=== PATIENT | male | born 1990 | race Caucasian/White ===

== ENCOUNTER 2016-09-18 18:10 | Emergency (ER) | payer MEDICAID ==
--- NOTE | 2016-09-18 18:41 | Emergency Department Record ---
History of Present Illness - General Chief Complaint: Shortness of breath Stated Complaint: SHORT OF BREATH Time Seen by Provider: 09/18/16 18:31 Source: Patient Mode of Arrival: Ambulatory Limitations: No limitations - History of Present Illness Initial Comments: The patient is here due to 2 episodes of SOB today. The first occurred at noon today and lasted about 45 minutes and the 2nd occurred at 5:30 while at work and again lasted about 45 minutes. Both episodes occurred while at rest and were associated with very mild L chest heaviness. He denied any nausea or sweating with the SOB. The patient had similar episodes to this about 4 months ago and did see his PCP and have PFT's done that were normal. He has no hx of CP with exertion and has no cardiac risk factors. MD Complaint: Shortness of breath Onset/Timin -: Hour(s) Consistency: Intermittent Associated Symptoms: Chest pain Treatments Prior to Arrival: Bronchodilator Treatment Prior to Arrival Comment:: used mothers inhaler this afternoon - Related Data Home Oxygen Therapy: No Allergies Allergy/AdvReac Type Severity Reaction Status Date / Time No Known Allergies Allergy Unverified 07/01/16 09:38 Travel Screening - Travel/Exposure Within Last 30 Days Have you traveled within the last 30 days?: No - Travel/Exposure Within Last Year Have you traveled outside the [place] in the last year?: No - Additonal Travel Details Have you been exposed to anyone with a communicable illness?: No - Travel Symptoms Symptom Screening: None Review of Systems Constitutional: Denies: Chills, Fever Eyes: Denies: Eye discharge ENT: Denies: Congestion Respiratory: Denies: Cough, Dyspnea Cardiovascular: Denies: Arrhythmia, Chest pain, Dyspnea on exertion, Palpitations, Syncope Past Medical History - SOCIAL HISTORY Smoking Status: Never smoker Alcohol Use: Rare Drug Use: None - RESPIRATORY Hx Respiratory Disorders: No - CARDIOVASCULAR Hx Cardio Disorders: No Comment:: heart murmur as a child - NEURO Hx Neuro Disorders: No - GI Hx GI Disorders: No - Hx Genitourinary Disorders: No - ENDOCRINE Hx Endocrine Disorders: No - MUSCULOSKELETAL Hx Musculoskeletal Disorders: No - PSYCH Hx Psych Problems: No - HEMATOLOGY/ONCOLOGY Hx Hematology/Oncology Disorders: No Family Medical History Any Significant Family History?: Yes Hx Cancer: Grandparents Hx Heart Disease: Grandparents Hx Resp Disorders: Mother Physical Exam - General General Appearance: Alert, Oriented x3, Cooperative, No acute distress - Head Head exam: Atraumatic, Normocephalic, Normal inspection - Eye Eye exam: Normal appearance, PERRL - ENT Throat exam: Normal inspection. negative: Tonsillar erythema, Tonsillar exudate - Neck Neck exam: Normal inspection, Full ROM. negative: Tenderness - Respiratory Respiratory exam: Normal lung sounds bilaterally. negative: Respiratory distress - Cardiovascular Cardiovascular Exam: Regular rate, Normal rhythm, Normal heart sounds. negative : Diastolic murmur, Systolic murmur - GI/Abdominal GI/Abdominal exam: Soft, Normal bowel sounds. negative: Tenderness - Extremities Extremities exam: Normal inspection, Full ROM, Normal capillary refill. negative: Calf tenderness, Pedal edema, Tenderness - Neurological Neurological exam: Alert, Normal gait. negative: Abnormal gait, Motor sensory deficit Course Vital Signs 09/18/16 18:21 Temperature 98.7 F Pulse Rate 60 Respiratory 20 Rate Blood Pressure 128/80 Pulse Ox 95 - Reevaluation(s) Reevaluation #1: The patient's care was turned over to Dr. Simon at 19:00 due to shift change. 09/18/16 18:59 Medical Decision Making - Lab Data Result diagrams: 09/18/16 18:40 09/18/16 18:40 Disposition Forms: Patient Portal Access Quality - Quality Measures Quality Measures: N/A - Blood Pressure Screening View Details: Yes Blood Pressure Classification: Pre-Hypertensive BP Reading Systolic Measurement: 128 Diastolic Measurement: 80 Screening for High Blood Pressure: < Pre-Hypertensive BP, F/U Documented > [ G8950] Pre-Hypertensive Follow-up Interventions: Follow-up with rescreen every year.
[2016-09-18 19:04] LABS: BASO % 0.3 % (0-6); GRAN % 64.4 % (47-80); HEMATOCRIT 44.3 % (42.0-52.0); HEMOGLOBIN 15.2 gm/dl (14.0-18.0); LYMPH % 23.9 % (16-45); MEAN CELL VOLUME 83.6 fl (81-97); MEAN CORPUSCULAR HEMOGLOBIN 28.7 pg (27-33); MEAN CORPUSCULAR HGB CONC 34.3 g/dl (32-36); MEAN PLATELET VOLUME 10.5 fl (7.4-10.4); MONO % 6.4 % (0-9); PLATELET COUNT 311 K/uL (130-400); RED CELL DISTRIBUTION WIDTH 13.1 % (11.5-14.5); WHITE BLOOD COUNT W/O DIFF 9.8 K/uL (4.2-12.2)
[2016-09-18 19:15] LABS: ANION GAP 11.9 (7-16); BLOOD UREA NITROGEN 12 mg/dL (9-20); CARBON DIOXIDE 27.1 mmol/L (22-30); CREATINE PHOSPHOKINASE 236 U/L (55-170); CREATININE 0.8 mg/dL (0.66-1.25); EST GLOMERULAR FILTRATION RATE > 60 ml/min; GLUCOSE,RANDOM 94 mg/dL (70-110)
[2016-09-18 19:27] LABS: CKMB 3.3 ug/L (0-6); TROPONIN I < 0.012 ng/mL (0.00-0.034)
--- NOTE | 2016-09-18 20:26 | Emergency Department Record ---
History of Present Illness - General Chief Complaint: Shortness of breath Stated Complaint: SHORT OF BREATH Time Seen by Provider: 09/18/16 18:31 Source: Patient Mode of Arrival: Ambulatory Limitations: No limitations - History of Present Illness Onset/Timin -: Hour(s) Consistency: Intermittent Associated Symptoms: Chest pain Treatments Prior to Arrival: Bronchodilator Treatment Prior to Arrival Comment:: used mothers inhaler this afternoon - Related Data Home Oxygen Therapy: No Allergies Allergy/AdvReac Type Severity Reaction Status Date / Time No Known Allergies Allergy Unverified 07/01/16 09:38 Travel Screening - Travel/Exposure Within Last 30 Days Have you traveled within the last 30 days?: No - Travel/Exposure Within Last Year Have you traveled outside the [place] in the last year?: No - Additonal Travel Details Have you been exposed to anyone with a communicable illness?: No - Travel Symptoms Symptom Screening: None Review of Systems Constitutional: Denies: Chills, Fever Eyes: Denies: Eye discharge ENT: Denies: Congestion Respiratory: Denies: Cough, Dyspnea Cardiovascular: Denies: Arrhythmia, Chest pain, Dyspnea on exertion, Palpitations, Syncope Past Medical History - SOCIAL HISTORY Smoking Status: Never smoker Alcohol Use: Rare Drug Use: None - RESPIRATORY Hx Respiratory Disorders: No - CARDIOVASCULAR Hx Cardio Disorders: No Comment:: heart murmur as a child - NEURO Hx Neuro Disorders: No - GI Hx GI Disorders: No - Hx Genitourinary Disorders: No - ENDOCRINE Hx Endocrine Disorders: No - MUSCULOSKELETAL Hx Musculoskeletal Disorders: No - PSYCH Hx Psych Problems: No - HEMATOLOGY/ONCOLOGY Hx Hematology/Oncology Disorders: No Family Medical History Any Significant Family History?: Yes Hx Cancer: Grandparents Hx Heart Disease: Grandparents Hx Resp Disorders: Mother Physical Exam - General Limitations: No limitations Course Vital Signs 09/18/16 18:21 Temperature 98.7 F Pulse Rate 60 Respiratory 20 Rate Blood Pressure 128/80 Pulse Ox 95 - Reevaluation(s) Reevaluation #1: 09/18/16 20:23 pt doing well. no symptoms Medical Decision Making - Lab Data Result diagrams: 09/18/16 18:50 09/18/16 18:50 Lab Results 09/18/16 09/18/16 09/18/16 Range/Units 18:50 18:50 18:50 WBC 9.8 (4.2-12.2) K/uL RBC 5.30 (4.40-5.70) M/uL Hgb 15.2 (14.0-18.0) gm/dl Hct 44.3 (42.0-52.0) % MCV 83.6 (81-97) fl MCH 28.7 (27-33) pg MCHC 34.3 (32-36) g/dl RDW 13.1 (11.5-14.5) % Plt Count 311 (130-400) K/uL MPV 10.5 H (7.4-10.4) fl Gran % 64.4 (47-80) % Lymphocytes % 23.9 (16-45) % Monocytes % 6.4 (0-9) % Eosinophils % 5.0 (0-6) % Basophils % 0.3 (0-6) % D-Dimer 0.23 (0-0.59) mg/L FEU Sodium 144 (136-145) mmol/L Potassium 4.1 (3.5-5.1) mmol/L Chloride 105 (98-107) mmol/L Carbon Dioxide 27.1 (22-30) mmol/L Anion Gap 11.9 (7-16) BUN 12 (9-20) mg/dL Creatinine 0.8 (0.66-1.25) mg/dL Estimated GFR > 60 ml/min Random Glucose 94 (70-110) mg/dL Calcium 9.5 (8.5-10.1) mg/dL Creatine Kinase 236 H (55-170) U/L CK-MB (CK-2) 3.3 (0-6) ug/L Troponin I < 0.012 (0.00-0.034) ng/mL NT-Pro-B Natriuret Pep (<125) pg/mL 09/18/16 Range/Units 18:50 WBC (4.2-12.2) K/uL RBC (4.40-5.70) M/uL Hgb (14.0-18.0) gm/dl Hct (42.0-52.0) % MCV (81-97) fl MCH (27-33) pg MCHC (32-36) g/dl RDW (11.5-14.5) % Plt Count (130-400) K/uL MPV (7.4-10.4) fl Gran % (47-80) % Lymphocytes % (16-45) % Monocytes % (0-9) % Eosinophils % (0-6) % Basophils % (0-6) % D-Dimer (0-0.59) mg/L FEU Sodium (136-145) mmol/L Potassium (3.5-5.1) mmol/L Chloride (98-107) mmol/L Carbon Dioxide (22-30) mmol/L Anion Gap (7-16) BUN (9-20) mg/dL Creatinine (0.66-1.25) mg/dL Estimated GFR ml/min Random Glucose (70-110) mg/dL Calcium (8.5-10.1) mg/dL Creatine Kinase (55-170) U/L CK-MB (CK-2) (0-6) ug/L Troponin I (0.00-0.034) ng/mL NT-Pro-B Natriuret Pep 46.30 (<125) pg/mL Disposition Disposition: Discharge Clinical Impression: SOB (shortness of breath) Disposition: Home, Self-Care Condition: (1) Good Instructions: Dyspnea (ED) Additional Instructions: follow up with family doctor and with corporate learning consultant to have further work up. return sooner if worse. Forms: Patient Portal Access Quality - Quality Measures Quality Measures: N/A - Blood Pressure Screening Blood Pressure Classification: Pre-Hypertensive BP Reading Systolic Measurement: 128 Diastolic Measurement: 80 Screening for High Blood Pressure: < Normal BP, F/U Not Required > [G8783] Normal BP Follow-up Interventions: No follow-up required
--- NOTE | 2016-09-19 09:00 | RADIOLOGY REPORT ---
EXAM: CHEST, TWO VIEWS HISTORY: DIFFICULTY IN BREATHING AND CHEST TIGHTNESS. TECHNIQUE: PA and lateral views of the chest were obtained. Comparison: None. FINDINGS: The heart size is normal. Mild linear fibrosis or discoid atelectasis right middle lobe. No acute alveolar infiltrate is seen. No pleural effusion or pneumothorax evident. IMPRESSION: MINOR LINEAR FIBROSIS OR DISCOID ATELECTASIS RIGHT MIDDLE LOBE. CHEST APPEARS OTHERWISE NEGATIVE. JOB NUMBER: [id number] MTDD
== END 2016-09-18 20:33 | disposition home or self-care (01) ==
LOC: ER 18:10
DX: R06.02 Shortness of breath (principal); R07.89 Other chest pain
CPT/HCPCS: 71020; 80048; 82550; 82553; 83880; 84484; 85025; 85379; 93005; 93010; 99284

== ENCOUNTER 2016-10-31 12:18 | Emergency (ER) | payer MEDICAID ==
--- NOTE | 2016-10-31 12:48 | Emergency Department Record ---
History of Present Illness - General Chief Complaint: Chest Pain Stated Complaint: CHEST PAIN Time Seen by Provider: 10/31/16 12:29 Source: Patient Mode of Arrival: Ambulatory Limitations: No limitations - History of Present Illness Initial Comments: The patient is here due to having 2 episodes of SOB today. The first occurred at 4am which woke him up. The 2nd occurred at work at 11:30am. The onset is with SOB and the patient feels like he cannot take a deep breath. He does have mild retrosternal chest tightness with it and the episodes lasted about 45 minutes before resolving on there own. The patient denies any sweating, nausea, or lightheadedness. The patient has had no episodes today with exertion or while walking. The patient has been having these exact same episodes for about a year and has seen his PCP about it and also was in the ER on 09/18/16 where he had a neg workup including labs, EKG, D-dimer, and CXR. The patient has had PFT' s for this and was told he did not have asthma. He presently has no cardiac risk factors and does not smoke. He also states he always gets these episodes while at rest and never with exertion. Presently he feels completely back to normal with no problems or issues. Onset/Timin -: Hour(s) Onset: Awoke with symptoms Pain Location: Substernal Pain Radiation: None Severity: Moderate Severity scale (1-10): 8 Quality: Tightness Consistency: Intermittent Improves With: Rest Anginal Symptoms: Diaphoresis Treatments Prior to Arrival: None - Related Data Home Medications Medication Instructions Recorded Confirmed Last Taken Cetirizine HCl [Zyrtec] 10 mg PO DAILY 10/31/16 10/31/16 10/31/16 Allergies Allergy/AdvReac Type Severity Reaction Status Date / Time No Known Allergies Allergy none Unverified 10/31/16 12:51 Travel Screening - Travel/Exposure Within Last 30 Days Have you traveled within the last 30 days?: No - Travel/Exposure Within Last Year Have you traveled outside the [place] in the last year?: No - Additonal Travel Details Have you been exposed to anyone with a communicable illness?: No - Travel Symptoms Symptom Screening: None Review of Systems Constitutional: Denies: Chills, Fever Eyes: Denies: Eye discharge ENT: Denies: Congestion Respiratory: Denies: Cough Cardiovascular: Denies: Arrhythmia Endocrine: Denies: Fatigue Gastrointestinal: Denies: Nausea Genitourinary: Denies: Dysuria Musculoskeletal: Denies: Arthralgia Past Medical History - SOCIAL HISTORY Smoking Status: Never smoker Alcohol Use: Rare Drug Use: None - RESPIRATORY Hx Respiratory Disorders: No - CARDIOVASCULAR Hx Cardio Disorders: No Comment:: heart murmur as a child - NEURO Hx Neuro Disorders: No - GI Hx GI Disorders: No - Hx Genitourinary Disorders: No - ENDOCRINE Hx Endocrine Disorders: No - MUSCULOSKELETAL Hx Musculoskeletal Disorders: No - PSYCH Hx Psych Problems: No - HEMATOLOGY/ONCOLOGY Hx Hematology/Oncology Disorders: No Family Medical History Any Significant Family History?: No Hx Cancer: Grandparents Hx Heart Disease: Grandparents Hx Resp Disorders: Mother Physical Exam - General General Appearance: Alert, Oriented x3, Cooperative, No acute distress - Head Head exam: Atraumatic, Normocephalic, Normal inspection - Eye Eye exam: Normal appearance, PERRL - ENT Throat exam: Normal inspection. negative: Tonsillar erythema, Tonsillar exudate - Neck Neck exam: Normal inspection, Full ROM. negative: Tenderness - Respiratory Respiratory exam: Normal lung sounds bilaterally. negative: Decreased breath sounds, Respiratory distress, Wheezes - Cardiovascular Cardiovascular Exam: Regular rate, Normal rhythm, Normal heart sounds. negative : Diastolic murmur, Irregular rhythm, Systolic murmur - GI/Abdominal GI/Abdominal exam: Soft, Normal bowel sounds. negative: Tenderness - Extremities Extremities exam: Normal inspection, Full ROM, Normal capillary refill. negative: Tenderness - Neurological Neurological exam: Alert, Normal gait. negative: Abnormal gait, Motor sensory deficit Course Vital Signs 10/31/16 12:20 Temperature 97.8 F Pulse Rate 75 Respiratory 18 Rate Blood Pressure 130/79 Pulse Ox 97 - Reevaluation(s) Reevaluation #1: The patient is doing very well at this time. He has had no further episodes in the ED. I did explain to him that his test results are all normal. I do not feel like the patient has any acute cardiac issue due to the fact he is young and healthy with no cardiac risk factors and the SOB and discomfort are never exertional. He will be referred to cardiology for further evaluation because the patient is very anxious about his heart. 10/31/16 13:39 Reevaluation #2: I also do not believe the patient could have a PE or any lung issue due to the fact he is low prob by Wells Criteria and is PERC Neg. He also had a neg D- dimer the last visit here in the ER less than 2 months ago for the exact same thing. 10/31/16 13:41 Medical Decision Making - Data Complexity MDM Data: Labs Ordered and/or Reviewed, EKG Ordered and/or Reviewed - Lab Data Result diagrams: 10/31/16 12:55 10/31/16 12:55 - EKG Data -: EKG Interpreted by Me EKG: No Acute Changes, Normal EKG, Unchanged From Previous Disposition Disposition: Discharge Clinical Impression: SOB (shortness of breath) Disposition: Home, Self-Care Condition: (1) Good Instructions: Dyspnea (ED) Additional Instructions: Please see your PCP next week as planned and also F/U in the Specialty clinic as planned with Dr. Jovel. Referrals: [facility] [Provider Group] Forms: Patient Portal Access Time of Disposition: 13:43 Quality - Quality Measures Quality Measures: N/A - Blood Pressure Screening View Details: Yes Does Patient Have Any of the Following: No Blood Pressure Classification: Pre-Hypertensive BP Reading Systolic Measurement: 121 Diastolic Measurement: 79 Screening for High Blood Pressure: < Pre-Hypertensive BP, F/U Documented > [ G8950] Pre-Hypertensive Follow-up Interventions: Referral to alternative/primary care provider.
[2016-10-31 13:08] LABS: BASO % 0.3 % (0-6); EOS % 6.8 % (0-6); GRAN % 61.9 % (47-80); HEMATOCRIT 46.1 % (42.0-52.0); HEMOGLOBIN 15.7 gm/dl (14.0-18.0); LYMPH % 25.1 % (16-45); MEAN CELL VOLUME 82.6 fl (81-97); MEAN CORPUSCULAR HEMOGLOBIN 28.1 pg (27-33); MEAN CORPUSCULAR HGB CONC 34.1 g/dl (32-36); MEAN PLATELET VOLUME 10.6 fl (7.4-10.4); MONO % 5.9 % (0-9); PLATELET COUNT 338 K/uL (130-400); RED BLOOD COUNT 5.58 M/uL (4.40-5.70)
[2016-10-31 13:18] LABS: ALB/GLOB RATIO 1.3 (1.1-1.8); ALBUMIN 5.2 gm/dL (3.5-5.0); ALKALINE PHOSPHATASE 59 U/L (38-126); ALT/SGPT 67 U/L (21-72); ANION GAP 12.9 (7-16); AST/SGOT 33 U/L (17-59); BILIRUBIN,TOTAL 0.86 mg/dL (0.2-1.3); BLOOD UREA NITROGEN 13 mg/dL (9-20); CARBON DIOXIDE 25.1 mmol/L (22-30); CREATINE PHOSPHOKINASE 259 U/L (55-170); CREATININE 0.9 mg/dL (0.66-1.25); EST GLOMERULAR FILTRATION RATE > 60 ml/min; GLUCOSE,RANDOM 102 mg/dL (70-110); TOTAL PROTEIN 9.3 gm/dL (6.3-8.2)
[2016-10-31 13:29] LABS: CKMB 3.8 ug/L (0-6)
[2016-10-31 13:31] LABS: TROPONIN I < 0.012 ng/mL (0.00-0.034)
== END 2016-10-31 13:52 | disposition home or self-care (01) ==
LOC: ER 12:18
DX: R06.02 Shortness of breath (principal); R07.89 Other chest pain
CPT/HCPCS: 80053; 82550; 82553; 84484; 85025; 93005; 93010; 99284

== ENCOUNTER 2016-11-14 23:11 | Emergency (ER) | payer MEDICAID ==
--- NOTE | 2016-11-14 23:39 | Emergency Department Record ---
History of Present Illness - General Chief Complaint: Shortness of breath Stated Complaint: ELEVATED HEART RATE,YO Time Seen by Provider: 11/14/16 23:21 Source: Patient Mode of Arrival: Ambulatory Limitations: No limitations - History of Present Illness Initial Comments: 26 yo male presents to ED with a CC of shortness of breath and rapid heart beat symptoms approximately 20 minutes ago, reports that his symptoms are now resolving. Patient reports similar episodes in the past, reports that his PCP told him he may have acid reflux as the cause of his symptoms. Patient denies previous history of SVT or other arrhythmias requiring medication or conversion , and the patient denies health problems other than sleep apnea. Patient reports congestion symptoms, but denies fevers, chills, or productive cough symptoms. Patient denies PE/DVT history, and denies lower extremity swelling, pain, or edema symptoms. MD Complaint: Shortness of breath Onset/Timin -: Minutes(s) Severity: Moderate Consistency: Intermittent Improves With: Nothing Worsens With: Nothing Associated Symptoms: Denies other symptoms Treatments Prior to Arrival: None - Related Data Home Oxygen Therapy: No Allergies Allergy/AdvReac Type Severity Reaction Status Date / Time No Known Allergies Allergy none Unverified 10/31/16 12:51 Review of Systems Constitutional: Denies: Chills, Fever, Malaise, Night sweats Eyes: Denies: Eye discharge, Eye pain ENT: Denies: Congestion, Ear pain, Epistaxis Respiratory: Denies: Cough, Dyspnea Cardiovascular: Reports: Palpitations. Denies: Chest pain, Dyspnea on exertion Endocrine: Denies: Fatigue, Heat or cold intolerance Gastrointestinal: Denies: Abdominal pain, Nausea, Vomiting Genitourinary: Denies: Incontinence, Retention Musculoskeletal: Denies: Arthralgia, Back pain, Gout, Joint swelling Skin: Denies: Bruising, Change in color Neurological: Denies: Abnormal gait, Confusion, Headache, Seizure Psychiatric: Denies: Anxiety Hematological/Lymphatic: Denies: Anemia, Blood Clots Past Medical History - SOCIAL HISTORY Smoking Status: Never smoker Drug Use: None - RESPIRATORY Hx Respiratory Disorders: No - CARDIOVASCULAR Hx Cardio Disorders: No Comment:: heart murmur as a child - NEURO Hx Neuro Disorders: No - GI Hx GI Disorders: No - Hx Genitourinary Disorders: No - ENDOCRINE Hx Endocrine Disorders: No - MUSCULOSKELETAL Hx Musculoskeletal Disorders: No - PSYCH Hx Psych Problems: No - HEMATOLOGY/ONCOLOGY Hx Hematology/Oncology Disorders: No Family Medical History Hx Cancer: Grandparents Hx Heart Disease: Grandparents Hx Resp Disorders: Mother Physical Exam - General General Appearance: Alert, Oriented x3, Cooperative, No acute distress, Other ( resting comfortably, pulse 60's, biox 96% RA.) Limitations: No limitations - Head Head exam: Atraumatic, Normocephalic, Normal inspection Head exam detail: negative: Abrasion, Contusion, Fitzpatrick's sign, General tenderness, Hematoma, Laceration - Eye Eye exam: Normal appearance. negative: Conjunctival injection, Periorbital swelling, Periorbital tenderness, Scleral icterus - ENT Ear exam: negative: Auricular hematoma, Auricular trauma Nasal Exam: negative: Active bleeding, Discharge, Dried blood, Foreign body Mouth exam: negative: Drooling, Laceration, Muffled voice, Tongue elevation - Neck Neck exam: Normal inspection. negative: Meningismus, Tenderness - Respiratory Respiratory exam: Normal lung sounds bilaterally. negative: Rales, Respiratory distress, Rhonchi, Stridor - Cardiovascular Cardiovascular Exam: Regular rate, Normal rhythm, Normal heart sounds - GI/Abdominal GI/Abdominal exam: Soft. negative: Rebound, Rigid, Tenderness - Rectal Rectal exam: Deferred - exam: Deferred - Extremities Extremities exam: Normal inspection. negative: Pedal edema, Tenderness - Back Back exam: Denies: CVA tenderness (R), CVA tenderness (L) - Neurological Neurological exam: Alert, Normal gait, Oriented X3 - Psychiatric Psychiatric exam: Normal affect, Normal mood - Skin Skin exam: Normal color. negative: Abrasion Type of lesion: negative: abrasion Course Vital Signs 11/14/16 23:27 Temperature 98.3 F Pulse Rate [ 71 Pulse Ox Probe] Respiratory 16 Rate Blood Pressure 135/79 [Left Arm] Pulse Ox 94 L - Reevaluation(s) Reevaluation #1: 11/14/16 23:40 EKG: NSR 60 Normal axis, normal intervals, low voltage overall No acute ST-T wave changes, normal QT, no Brugada, no evidence for HCOM. Reevaluation #2: 11/15/16 00:07 Patient was re-evaluated at this time, reports that his palpitations symptoms have almost completely resolved. Patient is PERC negative, and recent CXR and basic laboratory studies that were performed (and reviewed tonight) have all been grossly unremarkable for an acute process. Patient reports that he has an appointment with Dr. Godinez on 11/26 for evaluation of his symptoms, and appears stable for discharge at this time without further evaluation in the ED. Disposition Disposition: Discharge Clinical Impression: Palpitations Disposition: Home, Self-Care Condition: (2) Stable Instructions: Heart Palpitations (ED) Additional Instructions: Return to ED if your symptoms worsen or if you have any concerns. Follow-up with Dr. Godinez as scheduled for further evaluation. Forms: Patient Portal Access Time of Disposition: 00:10 Quality - Quality Measures Quality Measures: N/A - Blood Pressure Screening Does Patient Have Any of the Following: No Blood Pressure Classification: Pre-Hypertensive BP Reading Systolic Measurement: 135 Diastolic Measurement: 79 Screening for High Blood Pressure: < Pre-Hypertensive BP, F/U Documented > [ G8950] Pre-Hypertensive Follow-up Interventions: Referral to alternative/primary care provider.
== END 2016-11-15 00:22 | disposition home or self-care (01) ==
LOC: ER 23:11
DX: R00.2 Palpitations (principal); R06.02 Shortness of breath
CPT/HCPCS: 93005; 93010; 99284